=== PATIENT | male | born 1995 | race Caucasian/White ===

== ENCOUNTER 2017-09-05 16:17 | Emergency (ER) | payer OTHER, BC ==
[2017-09-05 16:44] VITALS: RESP 20
[2017-09-05] MEDS ORDERED: TDAP VACCINE 0.5 ML SUS IM ONE ×2 (16:58→17:00)
[2017-09-05 18:44] VITALS: BP 102/67; PULSE 71; TEMP 98.1; O2SAT 97
== END 2017-09-05 18:40 | disposition home or self-care (01) | DRG 914 ==
LOC: ED 16:17
DX: T14.8XXA Other injury of unspecified body region, initial encounter (principal); M54.6 Pain in thoracic spine; W23.0XXA Caught, crushed, jammed, or pinched between moving objects, initial encounter; Y99.0 Civilian activity done for income or pay
CPT/HCPCS: 71250; 90715; 99283